=== PATIENT | male | born 1995 | race Caucasian/White ===

== ENCOUNTER 2023-04-21 15:02 | Inpatient (IN) | payer BC ==
[2023-04-21] MEDS ORDERED: SODIUM CHLORIDE 1,000 ML IV STA (15:17)
[2023-04-21] MEDS ORDERED: METOCLOPRAMIDE HCL INJECTION 10 MG/2 ML VIAL IVPUSH ONE (15:27)
[2023-04-21] MEDS ORDERED: FAMOTIDINE 20 MG/50 ML IVPB 20 MG/50 ML MG IVPB ONE ×2 (15:27→15:43)
[2023-04-21] MEDS ORDERED: ACETAMINOPHEN 1000 MG/100 ML BAG IVPB ONE (15:27)
[2023-04-21] MEDS ORDERED: ACETAMINOPHEN INJECTION 100 ML IVPB ONE (15:42)
[2023-04-21] MEDS ORDERED: METOCLOPRAMIDE HCL INJECTION 10 MG/2 ML VIAL ONE (15:42)
[2023-04-21 15:47] LABS: BASO % 0.5 % (0-2.0); EOS % 0.3 % (0-4.5); HEMATOCRIT 41.3 % (35.4-49); HEMOGLOBIN 13.6 GM/dL (11.7-16.9); LYMPH % 6.3 % (8-40); MCH 29.5 pg (25.7-33.7); MEAN CELL VOLUME 89.5 fl (80-96); MEAN PLT VOLUME 8.7 fl (7.5-11.1); MONO % 6.8 % (3.8-10.2); NEUT % 86.1 % (42.8-82.8); PLATELET COUNT 225 10^3/uL (134-434); RBC 4.62 M/mm3 (4.00-5.60); RDW 14.4 % (11.9-15.9); WHITE BLOOD COUNT 14.3 K/mm3 (4.0-10.0)
[2023-04-21 16:02] LABS: INR 1.01 (0.83-1.09); PROTHROMBIN TIME (PATIENT) 11.7 SEC (9.7-13.0)
[2023-04-21 16:08] LABS: POTASSIUM 3.7 mmol/L (3.5-5.1)
[2023-04-21 16:10] LABS: CALCIUM 9.6 mg/dL (8.5-10.1)
[2023-04-21 16:11] LABS: ALBUMIN 4.4 g/dl (3.4-5.0); MAGNESIUM 1.9 mg/dL (1.8-2.4)
[2023-04-21 16:14] LABS: CREATININE 1.1 mg/dL (0.55-1.3)
[2023-04-21 16:15] LABS: BILIRUBIN,TOTAL 0.9 mg/dL (0.2-1); TOT PROT 7.6 g/dl (6.4-8.2)
[2023-04-21 16:53] LABS: URINE APPEARANCE CLEAR; URINE BILIRUBIN NEGATIVE (NEGATIVE); URINE COLOR YELLOW; URINE GLUCOSE (UA) NEGATIVE (NEGATIVE); URINE KETONE 2+ (NEGATIVE); URINE LEUK ESTERASE NEGATIVE (NEGATIVE); URINE NITRITE NEGATIVE (NEGATIVE); URINE PROTEIN NEGATIVE (NEGATIVE); URINE UROBILINOGEN 0.2 mg/dL (0.2-1.0)
[2023-04-21] MEDS ORDERED: PIPERACILLIN/TAZOB 3.375 GM 3.375 GM in DEXTROSE 5%-WATER - 50 ML IVPB ONE (18:47)
[2023-04-21] MEDS ORDERED: SODIUM CHLORIDE 1,000 ML IV SCH ×2 (19:00→21:45)
[2023-04-21] MEDS ORDERED: morphine CARPU-JECT 4 MG/1 ML DISP.SYRIN IVPUSH ONE (19:03)
[2023-04-21] MEDS ORDERED: morphine SULFATE 4 MG/ML VIAL ONE (19:27)
[2023-04-21] MEDS ORDERED: PIPERACILLIN/TAZOB 3.375 GM 3.375 GM/50 ML BAG IVPB ONE (19:28)
[2023-04-21] MEDS ORDERED: PANTOPRAZOLE SODIUM 40 MG VIAL IVPUSH SCH (21:15)
[2023-04-21] MEDS ORDERED: ONDANSETRON 4 MG/2 ML VIAL IVPUSH PRN (21:32)
[2023-04-21] MEDS: ACETAMINOPHEN 1000 MG/100 ML BAG IVPB PRN (22:29)
[2023-04-21 22:43] VITALS: BMI 31.2
[2023-04-22] MEDS ORDERED: PIPERACILLIN/TAZOB 3.375 GM 3.375 GM in DEXTROSE 5%-WATER - 50 ML IVPB SCH (02:00)
[2023-04-22] MEDS: PIPERACILLIN/TAZOB 3.375 GM 3.375 GM in DEXTROSE 5%-WATER - 50 ML IVPB SCH ×2 (02:31→10:59)
[2023-04-22] MEDS: ACETAMINOPHEN 1000 MG/100 ML BAG IVPB PRN (07:09)
[2023-04-22 08:06] LABS: POTASSIUM 3.7 mmol/L (3.5-5.1)
[2023-04-22 08:08] LABS: CALCIUM 8.5 mg/dL (8.5-10.1)
[2023-04-22 08:09] LABS: ALBUMIN 3.6 g/dl (3.4-5.0); MAGNESIUM 1.8 mg/dL (1.8-2.4)
[2023-04-22 08:12] LABS: PHOSPHOROUS 1.6 mg/dL (2.5-4.9)
[2023-04-22 08:13] LABS: BILIRUBIN,TOTAL 0.8 mg/dL (0.2-1); TOT PROT 6.7 g/dl (6.4-8.2)
[2023-04-22 08:22] LABS: BASO % 0.1 % (0-2.0); HEMATOCRIT 39.6 % (35.4-49); LYMPH % 6.3 % (8-40); MCH 29.4 pg (25.7-33.7); MCHC 32.9 g/dl (32.0-35.9); MEAN CELL VOLUME 89.4 fl (80-96); MONO % 7.7 % (3.8-10.2); NEUT % 85.9 % (42.8-82.8); PLATELET COUNT 202 10^3/uL (134-434); RBC 4.43 M/mm3 (4.00-5.60); RDW 14.7 % (11.9-15.9); WHITE BLOOD COUNT 10.4 K/mm3 (4.0-10.0)
[2023-04-22] MEDS ORDERED: FENTANYL CITRATE/PF 50 MCG/ML VIAL ONE ×4 (09:09→11:25)
[2023-04-22] MEDS ORDERED: ROCURONIUM BROMIDE 50 MG/5 ML SYRINGE ONE ×2 (09:09→10:08)
[2023-04-22] MEDS ORDERED: PROPOFOL 20 ML ONE (09:09)
[2023-04-22] MEDS ORDERED: MIDAZOLAM HCL 2 MG/2 ML SINGLE DOSE VIAL ONE (09:09)
[2023-04-22] MEDS ORDERED: SUCCINYLCHOLINE CHLORIDE 200 MG/10 ML SYRINGE ONE (09:09)
[2023-04-22] MEDS ORDERED: PIPERACILLIN/TAZOBACTAM 3.375 GM VIAL IVPB ONE (09:12)
[2023-04-22] MEDS ORDERED: BUPIVACAINE HCL/PF 0.25% (2.5MG/ML) 10 ML VIAL ONE (09:31)
[2023-04-22] MEDS ORDERED: ACETAMINOPHEN INJECTION 100 ML IVPB ONE (09:43)
[2023-04-22] MEDS ORDERED: NEOSTIGMINE METHYLSULFATE 0.5 MG/1 ML - 10 ML MDV ONE (10:20)
[2023-04-22] MEDS ORDERED: BUPIVACAINE HCL/PF 0.25% (2.5MG/ML) 10 ML VIAL IJ ONE (10:32)
[2023-04-22] MEDS ORDERED: ONDANSETRON 4 MG/2 ML VIAL IVPUSH PRN (11:04)
[2023-04-22] MEDS ORDERED: SODIUM CHLORIDE 1,000 ML IV SCH (11:04)
[2023-04-22] MEDS ORDERED: LACTATED RINGERS SOLUTION 1,000 ML IV SCH (11:15)
[2023-04-22] MEDS: oxyCODONE HCL 5 MG TABLET PO PRN (14:04)
[2023-04-22] MEDS ORDERED: PIPERACILLIN/TAZOB 3.375 GM 3.375 GM in DEXTROSE 5%-WATER - 50 ML IVPB ONE (18:00)
[2023-04-22] MEDS ORDERED: ACETAMINOPHEN 1000 MG/100 ML BAG IVPB SCH (18:00)
[2023-04-22] MEDS: KETOROLAC TROMETHAMINE 30 MG/1 ML VIAL IVPUSH SCH (20:07)
[2023-04-23] MEDS: ACETAMINOPHEN 500 MG TABLET (FP) PO SCH ×3 (01:35→18:40)
[2023-04-23] MEDS: KETOROLAC TROMETHAMINE 30 MG/1 ML VIAL IVPUSH SCH (01:36)
[2023-04-23] MEDS ORDERED: PIPERACILLIN/TAZOB 3.375 GM 3.375 GM in DEXTROSE 5%-WATER - 50 ML IVPB SCH (02:00)
[2023-04-23] MEDS: oxyCODONE HCL 5 MG TABLET PO PRN (03:57)
[2023-04-23] MEDS: MULTIVITAMINS (DAILY MVI) TABLET (FP) PO SCH (10:01)
[2023-04-23] MEDS: NAPH,MB-DB/K PH,MBDB POWDER PACKET PO SCH ×2 (10:01→21:10)
[2023-04-23] MEDS: PIPERACILLIN/TAZOB 4.5 GM 4.5 GM in DEXTROSE 5%-WATER 100 ML IVPB SCH ×2 (12:47→18:40)
[2023-04-23 12:50] LABS: BASO % 0.1 % (0-2.0); EOS % 0.1 % (0-4.5); HEMOGLOBIN 11.8 GM/dL (11.7-16.9); MCH 29.7 pg (25.7-33.7); MCHC 33.7 g/dl (32.0-35.9); MEAN CELL VOLUME 88.2 fl (80-96); MONO % 6.1 % (3.8-10.2); NEUT % 83.7 % (42.8-82.8); PLATELET COUNT 168 10^3/uL (134-434); RBC 3.97 M/mm3 (4.00-5.60); RDW 14.5 % (11.9-15.9)
[2023-04-24] MEDS: ACETAMINOPHEN 500 MG TABLET (FP) PO SCH ×3 (01:03→17:58)
[2023-04-24] MEDS: PIPERACILLIN/TAZOB 4.5 GM 4.5 GM in DEXTROSE 5%-WATER 100 ML IVPB SCH ×3 (01:04→17:58)
[2023-04-24 08:34] LABS: BASO % 0.8 % (0-2.0); EOS % 0.7 % (0-4.5); HEMATOCRIT 34.7 % (35.4-49); HEMOGLOBIN 11.7 GM/dL (11.7-16.9); LYMPH % 16.8 % (8-40); MCH 30.2 pg (25.7-33.7); MCHC 33.7 g/dl (32.0-35.9); MEAN CELL VOLUME 89.6 fl (80-96); MEAN PLT VOLUME 8.8 fl (7.5-11.1); MONO % 9.5 % (3.8-10.2); NEUT % 72.2 % (42.8-82.8); PLATELET COUNT 192 10^3/uL (134-434); RBC 3.87 M/mm3 (4.00-5.60); RDW 14.4 % (11.9-15.9); WHITE BLOOD COUNT 8.4 K/mm3 (4.0-10.0)
[2023-04-24 09:00] LABS: POTASSIUM 3.5 mmol/L (3.5-5.1)
[2023-04-24 09:03] LABS: BLOOD UREA NITROGEN 15.5 mg/dL (7-18); CALCIUM 8.6 mg/dL (8.5-10.1); MAGNESIUM 2.2 mg/dL (1.8-2.4)
[2023-04-24 09:06] LABS: PHOSPHOROUS 2.7 mg/dL (2.5-4.9)
[2023-04-24 09:07] LABS: BILIRUBIN,TOTAL 0.6 mg/dL (0.2-1)
[2023-04-24 09:08] LABS: TOT PROT 6.2 g/dl (6.4-8.2)
[2023-04-24 09:09] LABS: ALBUMIN 2.7 g/dl (3.4-5.0)
[2023-04-24] MEDS: NAPH,MB-DB/K PH,MBDB POWDER PACKET PO SCH ×2 (09:53→21:36)
[2023-04-24] MEDS: MULTIVITAMINS (DAILY MVI) TABLET (FP) PO SCH (09:53)
[2023-04-24] MEDS: LACTATED RINGERS SOLUTION 1,000 ML/1,000 ML INFUS.BAG IV SCH ×2 (12:20→23:52)
[2023-04-24] MEDS: oxyCODONE HCL 5 MG TABLET PO PRN (16:24)
[2023-04-25] MEDS: PIPERACILLIN/TAZOB 4.5 GM 4.5 GM in DEXTROSE 5%-WATER 100 ML IVPB SCH ×3 (01:58→19:39)
[2023-04-25] MEDS: ACETAMINOPHEN 500 MG TABLET (FP) PO SCH ×3 (01:58→19:39)
[2023-04-25 08:31] LABS: BASO % 0.3 % (0-2.0); EOS % 2.1 % (0-4.5); HEMATOCRIT 36.9 % (35.4-49); HEMOGLOBIN 11.9 GM/dL (11.7-16.9); LYMPH % 19.2 % (8-40); MCH 29.2 pg (25.7-33.7); MCHC 32.3 g/dl (32.0-35.9); MEAN CELL VOLUME 90.3 fl (80-96); MEAN PLT VOLUME 9.1 fl (7.5-11.1); MONO % 13.1 % (3.8-10.2); NEUT % 65.3 % (42.8-82.8); PLATELET COUNT 211 10^3/uL (134-434); RBC 4.08 M/mm3 (4.00-5.60); WHITE BLOOD COUNT 7.2 K/mm3 (4.0-10.0)
[2023-04-25 08:46] LABS: POTASSIUM 3.8 mmol/L (3.5-5.1)
[2023-04-25 08:53] LABS: BLOOD UREA NITROGEN 13.9 mg/dL (7-18); CALCIUM 8.6 mg/dL (8.5-10.1)
[2023-04-25 08:54] LABS: ALBUMIN 2.6 g/dl (3.4-5.0); MAGNESIUM 2.1 mg/dL (1.8-2.4)
[2023-04-25 08:56] LABS: CREATININE 0.9 mg/dL (0.55-1.3); PHOSPHOROUS 4.2 mg/dL (2.5-4.9)
[2023-04-25 08:58] LABS: BILIRUBIN,TOTAL 0.6 mg/dL (0.2-1); TOT PROT 5.8 g/dl (6.4-8.2)
[2023-04-25] MEDS: NAPH,MB-DB/K PH,MBDB POWDER PACKET PO SCH ×2 (10:34→21:57)
[2023-04-25] MEDS: MULTIVITAMINS (DAILY MVI) TABLET (FP) PO SCH (12:20)
[2023-04-25] MEDS: LACTATED RINGERS SOLUTION 1,000 ML/1,000 ML INFUS.BAG IV SCH ×2 (12:38→13:46)
[2023-04-25] MEDS: oxyCODONE HCL 5 MG TABLET PO PRN ×2 (12:45→23:34)
[2023-04-26] MEDS: ACETAMINOPHEN 500 MG TABLET (FP) PO SCH ×3 (04:03→17:27)
[2023-04-26] MEDS: PIPERACILLIN/TAZOB 4.5 GM 4.5 GM in DEXTROSE 5%-WATER 100 ML IVPB SCH ×3 (04:03→17:26)
[2023-04-26] MEDS: LACTATED RINGERS SOLUTION 1,000 ML/1,000 ML INFUS.BAG IV SCH ×3 (09:39→21:36)
[2023-04-26] MEDS: NAPH,MB-DB/K PH,MBDB POWDER PACKET PO SCH ×2 (09:45→21:36)
[2023-04-26] MEDS: MULTIVITAMINS (DAILY MVI) TABLET (FP) PO SCH (09:45)
[2023-04-27] MEDS: ACETAMINOPHEN 500 MG TABLET (FP) PO SCH ×2 (00:59→09:55)
[2023-04-27] MEDS: PIPERACILLIN/TAZOB 4.5 GM 4.5 GM in DEXTROSE 5%-WATER 100 ML IVPB SCH ×2 (01:00→09:55)
[2023-04-27 09:38] VITALS: BP 152/94; PULSE 72; RESP 20; TEMP 98.9
[2023-04-27] MEDS: NAPH,MB-DB/K PH,MBDB POWDER PACKET PO SCH (09:55)
[2023-04-27] MEDS: MULTIVITAMINS (DAILY MVI) TABLET (FP) PO SCH (09:55)
== END 2023-04-27 14:40 | disposition home or self-care (01) | DRG 399 ==
LOC: JER 15:02 → JERBED 18:49 → J7W 22:04 → UNDODISIN 04-27 11:49
PROVIDERS: ADMIT Internal Medicine
PROC: 0DTJ4ZZ Resection of Appendix, Percutaneous Endoscopic Approach (ICD-10-PCS; principal; 2023-04-22 09:00)
DX: K35.32 Acute appendicitis with perforation, localized peritonitis, and gangrene, without abscess (principal); R50.82 Postprocedural fever
CPT/HCPCS: 36415; 74177-TC; 76705-TC; 80053; 81003; 83690; 83735; 84100; 84484; 85025; 85610; 85730; 86850; 86900; 86901; 87040; 87086; 87635; 88304-TC; 93005; 93010; 94010; 94760; 99285-25; Q9967